=== PATIENT | male | born 1950 | race Caucasian/White ===

== ENCOUNTER 2021-09-15 12:06 | Emergency (ER) | payer MEDICARE, SELFPAY ==
[2021-09-15 12:28] VITALS: BP 106/68; PULSE 56; RESP 16; TEMP 36.3; O2SAT 100
--- NOTE | 2021-09-15 13:22 | ED.BACK ---
HPI - Back Pain/Injury General Chief Complaint: Back Pain/Injury Stated Complaint: lt leg pain Source: patient and RN notes reviewed Limitations: no limitations History of Present Illness HPI Narrative: The unwell patient, on meds w/ prior history of CVA, presents with back and leg pain. Patient and spouse states he has about 1/2-week history of left low back pain that mild, worse with motion, better at rest and radiates up and down from the left lower extremity as far as the upper knee. Pain is similar to prior episode a couple years ago assisted by newly using a cane; no frequency/urgency/dysuria/hematuria, bowel?bladder symptoms, numbness/weakness, abdominal pain [he has prior stable abdominal CT alsoo showing L4-5 arthritic changes]. Related Data Allergies Allergy/AdvReac Type Severity Reaction Status Date / Time ioversol Allergy Unknown Rash Verified 09/15/21 12:28 shellfish derived Allergy Unknown Hives Verified 09/15/21 12:28 Contrast Media Allergy Unknown HIVES- CT Uncoded 09/15/21 12:28 SCAN DYE Review of Systems Review of Systems: General/Constitutional: No weight loss,fever Eyes: N0: Redness,discharge Ears/Nose/Throat: No: Epistaxis,ear discharge Respiratory: Denies: Hemoptysis Gastrointestinal: No Vomiting, Bleeding-rectal Skin: No Lumps, eruption Neurologic: No Focal Weakness,Sz Hematologic: Denies: Petechiae/Purpura Psychiatric: No: Suicida ideationl All Other Systems: Reviewed and Negative PMFSH Family History Family History (Updated 06/14/14 @ 07:13 by DOCTOR UNKNOWN) Mother Family history of heart disease in male family member before age 55 Social History Social History Smoking status: Never smoker Alcohol intake: never Comments At time of signature, agree with nursing past medical, surgical, social and family history. There is no relevant family history pertinent to the presenting complaint Exam Narrative: General Appearance: Aged appearing, Well nourished EYE: PERRLA, Conjunctiva clear Ears: External ear normal Nose: Normal nose Mouth/Throat: Normal appearing, Normal lips Neck: Supple Respiratory: Airway patent Abdomen: Soft, no masses palpated Musculoskeletal: Normal strength (no footdrop, 53 : EH L-FHL, gastroc-AT, no saddle weakness) Spine/Back: Paraspinal muscle tender (with mild decreased range of motion; left posterior superior iliac crest) Skin: Normal color Neurological: Awake alert; Normal reflexes (symmetric, 2+ KJ, trace AJ) Psychiatric: Pleasantly demented normal mood Course Vital Signs Vital signs: Vital Signs Temperature 97.4 F L 09/15/21 12:28 Pulse Rate 56 L 09/15/21 12:28 Respiratory Rate 16 09/15/21 12:28 Blood Pressure 106/68 09/15/21 12:28 Pulse Oximetry 100 09/15/21 12:28 Temperature 97.4 F L 09/15/21 12:28 Pulse Rate 56 L 09/15/21 12:28 Respiratory Rate 16 09/15/21 12:28 Blood Pressure 106/68 09/15/21 12:28 Pulse Oximetry 100 09/15/21 12:28 Discharge Plan Discharge Clinical Impression: Lumbar radiculopathy, Lumbar arthropathy Patient Disposition: Home, Self-Care Condition: Stable Instructions: Sciatica (ED), Lower Back Exercises (ED) Prescriptions: New prednisone 20 mg tablet 60 mg PO DAILY Qty: 15 RF: 0 acetaminophen-codeine 120-12 mg/5 mL solution 7.5 ml PO DAILY PRN (Reason: pain) Qty: 118 RF: 0 Follow-up/Referrals: Pepe,MD Roel [Primary Care Provider] -
== END 2021-09-15 13:39 | disposition home or self-care (01) ==
PROVIDERS: Emergency Provider Emergency Medicine; PCP Internal Medicine
DX: M54.16 Radiculopathy, lumbar region (principal); M47.816 Spondylosis without myelopathy or radiculopathy, lumbar region; Z86.73 Personal history of transient ischemic attack (TIA), and cerebral infarction without residual deficits
CPT/HCPCS: 99213; G0463

== ENCOUNTER 2022-01-16 10:45 | Observation (INO) | payer MEDICARE, SELFPAY ==
[2022-01-16] VITALS (48 sets, daily range): BP systolic 90–132; BP diastolic 43–79; PULSE 53–72; RESP 9–22; TEMP 36.2–36.6; O2SAT 95–100; BMI 23.7
--- NOTE | ~2022-01-16 | XR_ITS ---
EXAMINATION: XR chest 1V portable EXAM DATE: 01/16/2022 11:01 INDICATION: STEMI . TECHNIQUE: Portable AP frontal chest x-ray was obtained. There is no prior study for comparison. FINDINGS: There is single lead pacemaker/AICD device seen with tip projecting over the expected locat ion of right ventricle. The lungs are clear. There are no pleural effusions. The cardiomediastinal silhouette is within normal limits. There is no pneumothorax suspected. Bones appear osteopenic. IMPRESSION: No acute cardiopulmonary findings. Reviewed, dictated and finalized at location B.
--- NOTE | 2022-01-16 10:48 | ED.GENADULT ---
HPI - General Adult General Chief complaint: Syncope Stated complaint: syncopal Time Seen by Provider: 01/16/22 10:45 Source: RN notes reviewed History of Present Illness HPI narrative: Patient presents emergency department via EMS for syncopal episode. The patient states [place] when he passed out sitting in the car. Per EMS the family did briefly do CPR on the patient patient regained consciousness approximately 30 seconds and EMS was called. The patient currently seen in the room notes mild shortness of breath he denies any fevers or chills, chest pain, abdominal pain nausea vomiting diarrhea or any other symptoms he states he does see cardiology down in [place] and has a history of a defibrillator Related Data Home Medications Medication Instructions Recorded Confirmed aspirin [Adult Low Dose Aspirin] 81 mg PO DAILY 09/15/21 09/15/21 bupropion HCl 150 mg PO DAILY 09/15/21 09/15/21 cholecalciferol (vitamin D3) 1,000 units PO DAILY 09/15/21 09/15/21 duloxetine 60 mg PO DAILY 09/15/21 09/15/21 empagliflozin [Jardiance] 25 mg PO DAILY 09/15/21 09/15/21 ezetimibe-simvastatin 40 tablet PO DAILY 09/15/21 09/15/21 lisinopril 10 mg PO DAILY 09/15/21 09/15/21 metoprolol tartrate 25 mg PO BID 09/15/21 09/15/21 multivitamin [Men's Multi-Vitamin] 1 tablet PO DAILY 09/15/21 09/15/21 nitroglycerin 0.4 mg SUBLINGUAL PRN PRN 09/15/21 09/15/21 Allergies Allergy/AdvReac Type Severity Reaction Status Date / Time ioversol Allergy Unknown Rash Verified 09/15/21 12:28 shellfish derived Allergy Unknown Hives Verified 09/15/21 12:28 Contrast Media Allergy Unknown HIVES- CT Uncoded 09/15/21 12:28 SCAN DYE Review of Systems Review of Systems: Gen.: Denies fevers or chills Eyes: Denies eye pain or visual change ENT: Denies congestion Respiratory: Ports shortness of breath CV: See HPI GI: Denies abdominal pain nausea, emesis or diarrhea Musculoskeletal: Denies back pain or muscle pain Neuro: Denies numbness, tingling, weakness or focal weakness Skin: Denies rash Except as documented, all other systems reviewed and negative [facility] Past Medical History Medical History Diabetes mellitus Hypertension Family History Family History Mother Family history of heart disease in male family member before age 55 Social History Social History Smoking status: Never smoker Alcohol intake: never Exam Narrative: APPEARANCE: Lying in bed diaphoretic EYES: EOMI HEENT: Normocephalic, atraumatic, OMM RESPIRATORY: No respiratory distress Clear to auscultation bilaterally with no rhonchi wheezing or rales. CARDIOVASCULAR: Regular rate and rhythm without murmurs rubs or gallops. ABDOMINAL: Soft, nontender, nondistended, no rebound or guarding MUSCULOSKELETAl: Moves all extremities. No clubbing, cyanosis or edema. NEURO: Awake and alert. Following commands, speech normal, no focal deficits SKIN:: Warm, dry. No rashes lesions or abrasions PSYCHIATRIC: Normal affect/mood, Course Course Emergency Course: Patient with initial EKG changes and code STEMI called. Dr. Umanzor came to the emergency department to evaluate the patient after evaluation and review of EKG at this time does not feel like this is an acute STEMI and code STEMI called off Call from [employer] patient had 1 shock from his AICD 1007 this morning for heart rate approximately 280 Discussed with patient family need for admission request transfer to [facility] with her followed by Dr. Yanez Patient accepted at [facility] by Dr. Olson. Discussed with transfer line there will be no beds available today Discussed with RUSSELL Vu for Dr. Cesar agrees with admission Vital Signs Vital signs: Vital Signs Temperature 97.6 F 01/16/22 10:42 Pulse Rate 72 01/16/22 10:42 Respira
[2022-01-16 10:50] LABS: Glucose Point of Care 133 mg/dl (65-105)
--- NOTE | 2022-01-16 10:52 | ECG_ITS ---
Measurements Intervals [place] [address] Rate: 66 P: -85 GA: 212 QRS: -32 QRSD: 181 T: 117 QT: 450 QTc: 473 Interpretive Statements POSSIBLE ECTOPIC ATRIAL RHYTHM WITH FIRST DEGREE AV BLOCK LEFT AXIS DEVIATION [QRS AXIS < -30] INTRAVENTRICULAR CONDUCTION DELAY [130+ ms QRS DURATION] ABNORMAL ECG NO PREVIOUS ECG AVAILABLE FOR COMPARISON Electronically Signed On 01-16-2022 17:17:09 CDT by Kendall Ma M.D.
[2022-01-16] MEDS: ASPIRIN 81 MG CHEWABLE TABLET 324 MG PO (10:55)
--- NOTE | 2022-01-16 10:55 | PC.NURSE ---
Stemi O/H = 1046 Tanner = 1046 Dr Umanzor = 1047 [facility] = 1048 ETA 20min
--- NOTE | 2022-01-16 11:07 | PC.NURSE ---
Barrel Repairer and senior label specialist staff at bedside speaking with family.
[2022-01-16 11:08] LABS: Basophils Absolute Auto 0.1 K/mm3 (0.0-0.1); Basophils Percent Auto 0.6 % (0.2-1.2); Eosinophils Absolute Auto 0.2 K/mm3 (0-0.3); Eosinophils Percent Auto 1.7 % (0-4.4); Hematocrit 45.8 % (42.0-52.0); Hemoglobin 15.3 g/dL (14.0-18.0); Immature Granulocyte Absolute 0.12 K/mm3 (0.00-0.031); Immature Granulocyte Percent A 0.9 % (0-0.5); Lymphocytes Absolute Auto 2.46 K/mm3 (0.9-3.2); Lymphocytes Percent Auto 19.4 % (18.3-44.2); Mean Corpuscular HGB Conc 33.4 g/dl (32-36); Mean Corpuscular Hemoglobin 32.3 pg (26-34); Mean Corpuscular Volume 96.6 fl (80-100); Mean Platelet Volume 10.5 fl (7.4-10.4); Monocytes Percent Auto 15.7 % (2.6-8.5); Neutrophils Absolute Auto 7.8 K/mm3 (1.3-6.7); Neutrophils Percent Auto 61.7 % (45.5-73.1); Platelet Count Result 205 k/mm3 (150-375); Red Blood Count 4.74 M/mm3 (4.6-6.20); Red Cell Distribution Width 13.3 % (11.5-14.5); White Blood Count 12.7 K/mm3 (4.5-10.0)
[2022-01-16 11:10] LABS: INR 1.1; Prothrombin Time 13.6 Seconds (11.1-14.7)
[2022-01-16 11:10] LABS: Alanine Aminotransferase 36 U/L (4-50); Albumin Level 4.1 g/dL (3.5-5.1); Alkaline Phosphatase 148 U/L (38-126); Anion Gap 8 mmol/L (8-16); Aspartate Amino Transferase 44 U/L (17-59); Blood Urea Nitrogen 22 mg/dL (9-20); Calcium 9.2 mg/dL (8.4-10.2); Carbon Dioxide 24 mmol/L (22-30); Chloride 104 mmol/L (98-107); Cholesterol 115 mg/dL (0-200); Estimated CRCL calculation 46 ml/min; Estimated Glomerular Filt Rate > 60; Glucose 148 mg/dL (65-110); HDL Direct 38 mg/dL; Lipase 123 U/L (23-300); Potassium 4.3 mmol/L (3.4-5.0); Sodium 136 mmol/L (137-145); Triglycerides 103 mg/dL (<150)
--- NOTE | 2022-01-16 11:10 | PC.NURSE ---
Pt's wants pt transferred to [facility]. Community Resource Consultant at bedside okay with transfer and speaking with Raya HARRINGTON. Pt denies any CP, reports dizziness has improved.
[2022-01-16 11:11] LABS: Partial Thromboplastin Time 24.1 SECONDS (22.3-36.8)
[2022-01-16 11:21] LABS: LDL Cholesterol Direct 54 mg/dL
[2022-01-16 11:25] LABS: Troponin I < 0.012 ng/mL (0.000-0.034)
--- NOTE | 2022-01-16 13:50 | PM.CNCAR ---
Assessment and Plan Additional Plan - ICD shock - history of CAD with 3 stents 1995 - ischemic cardiomyopathy last ejection fraction 35-40% 2018 - history of stroke. this 71-year-old patient who sustained an episode of syncope. Device interrogation shows that he was shocked. Denies chest pain. Troponins x1 negative. 1st EKG questionable for ST elevation in lead V2 however does not seem to be a STEMI. family requesting transfer to [place]. Meanwhile I recommend at this time starting patient on amiodarone until he gets transferred to [place]. Resume his home medications including beta-ming, aspirin History of Present Illness History of Present Illness Consult date/time: Date of fnuvikg10/01/22 13:50 Requesting physician: Xavier Dos Santos, DO Consult reason: Other ( syncope) Reason For Visit: syncopal Narrative: this is 71-year-old patient with past medical history of ischemic cardiomyopathy, defibrillator, history of myocardial infarction 1995 with 3 stents. also history of stroke and brain bleed. he follows up with Cardiology at [facility]. His stated that he had a defibrillator and the arm many issues with the defibrillator in terms of the leads. She describes that 1 of the leads was recalled. Recent interrogation was told that it will take about a couple months and then the pacemaker needs to be changed. He apparently was in the car and suddenly he had an episode of syncope and was not breathing and his son provided some brief CPR. Currently he is awake and oriented and denies any chest pain or shortness of breath. He was feeling totally fine earlier. Device interrogation apparently shows 1 shock. His on the bedside and she is very frustrated because she kept telling EMS to bring him to [facility] but they brought him here to [facility] she is very upset. She wants to take him directly to [facility] ([place] His EKG shows sinus rhythm with intraventricular conduction delay there is minimal ST elevation in lead V2. No old EKG in epic. His last echocardiogram was in 2018 showed ejection fraction 35-40%. Is hemodynamically stable Troponin x1 negative. Review of Systems Constitutional: Constitutional: Denies chills, Denies fever(s) and Denies poor appetite Eyes: Eyes: Denies eye discharge, Denies loss of vision, Denies eye pain and Denies photophobia ENT: Denies dizziness, Denies epistaxis, Denies nasal congestion and Denies sore throat Cardiovascular: Cardiovascular: Denies chest pain, Reports syncope, Denies pedal edema, Denies leg edema, Denies palpitations, Denies dyspnea, Denies dyspnea on exertion and Denies orthopnea Respiratory: Respiratory: Denies cough, Denies dyspnea, Denies dyspnea on exertion and Denies wheezing Gastrointestinal: Gastrointestinal: Denies abdominal pain, Denies diarrhea, Denies nausea and Denies vomiting Genitourinary: Genitourinary: Denies hematuria, Denies genital lesions and Denies dysuria Musculoskeletal: Musculoskeletal: Denies arthralgias, Denies joint swelling and Denies numbness Integumentary/Breasts: Skin/Breast: Denies pruritus and Denies rash Neurologic: Denies dizziness, Reports syncope, Denies loss of vision and Denies numbness Psychiatric: Psychiatric: Denies anxiety and Denies depression Endocrine: Endocrine: Denies cold intolerance, Denies heat intolerance and Denies palpitations Hematologic/Lymphatic: Hematologic/Lymphatic: Denies easy bleeding and Denies easy bruising Allergic/Immunologic: Allergic/Immunologic: Denies urticaria and Denies wheezing PMF Past Medical History Medical History Diabetes mellitus Hypertension Family History Family History Mother Family history of heart disease in male family member before age 55 Social History Social History Smoking status: N
[2022-01-16 14:05] LABS: SARS-CoV-2 RNA PCR Negative
[2022-01-16 14:46] LABS: Troponin I 0.018 ng/mL (0.000-0.034)
[2022-01-16] MEDS: AMIODARONE 360 MG/D5W 200 ML 360 MG/200 ML BAG 33.33 MG IV CONT (18:13)
[2022-01-16] MEDS: AMIODARONE 150 MG/D5W 100 ML 150 MG/100 ML BAG 600 MG IV CONT (18:14)
[2022-01-16] MEDS: ENOXAPARIN 40 MG/0.4 ML SYRINGE SUB-Q (18:26)
--- NOTE | 2022-01-16 18:38 | ADMGEN ---
This patient, Jacinto Navarrete, was admitted to IMU Room 213-01. Patient/family oriented to hospital policies and general routines including ID bracelet, bed and alarms, visiting hours, pain management, procedures, bathroom and other care routines, personal items, smoking policy, room service/diet, and visiting hours. Information on how to activate the Rapid Response Team has been discussed. Patient/Family are encouraged to report perceived risks to care and to ask questions if they do not understand what they are told or what they should do.
[2022-01-16 18:44] LABS: Troponin I 0.022 ng/mL (0.000-0.034)
--- NOTE | 2022-01-16 20:12 | PM.IMHP ---
H&P: HPI History of Present Illness Date/Time: Patient was placed observation status for expected length of stay less than 23 hours for management, will plan to re-evaluate tomorrow for improvement. 01/16/22 20:12 Chief Complaint: ICD discharge Narrative: Mr. Navarrete is a 71-year-old gentleman who presents to the emergency room via EMS for a syncopal episode. Patient is unable to give me any type of history of what occurred, because he does not recall the events. Per patient's and son patient was going [place] the horse track today with his son when they turned the corner away from his house and the patient went unresponsive. Patient's son states he tried to arouse his father multiple times and he was unable to do arouse him. Patient's son states that he then got his father added car and EMS was called and the son started CPR. Patient states that after he had given 5 chest compressions and around of breaths the patient cast and started to ?come around?. It is patient has a known history of CAD status post stent placement and ischemic cardiomyopathy status post ICD placement. Patient spouse states he typically follows up at [place] with Cardiology for all of his needs. Patient denies any chest pain, shortness a breast, lightheadedness, dizziness, fever, or chills prior to or after the event. Patient states he did lose consciousness and does not recall any of these events. Upon evaluation in emergency room patient underwent interrogation of his defibrillator and it appears that patient was in VFib and he was shocked appropriately by his defibrillator. Review of Systems Review of Systems: A 12 point review of systems was completed patient all pertinent positive and negative per HPI the remainder are unremarkable. I am unsure of how reliable review of systems secondary to the fact the patient cannot recall the events of the day. [facility] Past Medical History Medical History (Updated 01/16/22 @ 20:19 by Mirella Sanchez APRN) Coronary artery disease CVA (cerebral vascular accident) Depression Diabetes mellitus Dyslipidemia Hypertension Ischemic cardiomyopathy Surgical History Surgical History (Updated 01/16/22 @ 20:19 by Mirella Sanchez APRN) Presence of single chamber implantable cardioverter-defibrillator (ICD) Stented coronary artery Family History Family History Mother Family history of heart disease in male family member before age 55 Social History Social History Smoking status: Never smoker Alcohol intake: never Substance use: never Spiritual care concerns: No Meds Home Medications and Allergies Home Medications Medication Instructions Recorded Confirmed Type bupropion HCl 150 mg PO DAILY 09/15/21 01/16/22 History cholecalciferol (vitamin D3) 1,000 units PO DAILY 09/15/21 01/16/22 History duloxetine 60 mg PO DAILY 09/15/21 01/16/22 History empagliflozin [Jardiance] 25 mg PO DAILY 09/15/21 01/16/22 History ezetimibe-simvastatin 40 tablet PO DAILY 09/15/21 01/16/22 History lisinopril 10 mg PO DAILY 09/15/21 01/16/22 History metoprolol tartrate 25 mg PO BID 09/15/21 01/16/22 History multivitamin [Men's Multi-Vitamin] 1 tablet PO DAILY 09/15/21 01/16/22 History nitroglycerin 0.4 mg SUBLINGUAL PRN PRN 09/15/21 01/16/22 History aspirin [Adult Aspirin] 81 mg PO DAILY 01/16/22 01/16/22 History Allergies Allergy/AdvReac Type Severity Reaction Status Date / Time ioversol Allergy Unknown Rash Verified 09/15/21 12:28 shellfish derived Allergy Unknown Hives Verified 09/15/21 12:28 Contrast Media Allergy Unknown HIVES- CT Uncoded 09/15/21 12:28 SCAN DYE Vital Signs Vital Signs - 24 hr 01/16/22 10:42 01/16/22 10:56 01/16/22 11:00 Temperature 36.4 C Pulse Rate 72 61 60 Respiratory Rate 17 17 Blood Pressure 122/79 Pulse Oximetry 100 100 01/16/22 11:07 01/16/22 11:11 01/16/22
[2022-01-16 20:47] LABS: Glucose Point of Care 150 mg/dl (65-105)
[2022-01-16] MEDS: METOPROLOL TARTRATE 25 MG TABLET PO (20:53)
[2022-01-17] VITALS (9 sets, daily range): BP systolic 98–119; BP diastolic 62–74; PULSE 52–56; RESP 12–20; TEMP 36.4–36.6; O2SAT 90–99
[2022-01-17] MEDS: AMIODARONE 360 MG/D5W 200 ML 360 MG/200 ML BAG 16.67 MG IV CONT ×2 (00:05→11:51)
[2022-01-17 01:09] LABS: Troponin I 0.023 ng/mL (0.000-0.034)
[2022-01-17 05:27] LABS: Basophils Absolute Auto 0.1 K/mm3 (0.0-0.1); Basophils Percent Auto 0.8 % (0.2-1.2); Eosinophils Absolute Auto 0.2 K/mm3 (0-0.3); Eosinophils Percent Auto 2.3 % (0-4.4); Hemoglobin 14.9 g/dL (14.0-18.0); Immature Granulocyte Absolute 0.09 K/mm3 (0.00-0.031); Immature Granulocyte Percent A 0.9 % (0-0.5); Lymphocytes Absolute Auto 2.42 K/mm3 (0.9-3.2); Lymphocytes Percent Auto 24.2 % (18.3-44.2); Mean Corpuscular HGB Conc 33.9 g/dl (32-36); Mean Corpuscular Hemoglobin 32.3 pg (26-34); Mean Corpuscular Volume 95.4 fl (80-100); Mean Platelet Volume 10.9 fl (7.4-10.4); Monocytes Absolute Auto 1.5 K/mm3 (0.1-0.6); Monocytes Percent Auto 14.8 % (2.6-8.5); Neutrophils Absolute Auto 5.7 K/mm3 (1.3-6.7); Platelet Count Result 178 k/mm3 (150-375); Red Blood Count 4.61 M/mm3 (4.6-6.20); Red Cell Distribution Width 13.5 % (11.5-14.5)
[2022-01-17 05:33] LABS: Alanine Aminotransferase 33 U/L (4-50); Albumin Level 3.8 g/dL (3.5-5.1); Alkaline Phosphatase 131 U/L (38-126); Anion Gap 5 mmol/L (8-16); Aspartate Amino Transferase 39 U/L (17-59); Bilirubin,Total 0.4 mg/dL (0.2-1.3); Blood Urea Nitrogen 21 mg/dL (9-20); Calcium 8.4 mg/dL (8.4-10.2); Carbon Dioxide 26 mmol/L (22-30); Chloride 105 mmol/L (98-107); Estimated CRCL calculation 56 ml/min; Estimated Glomerular Filt Rate > 60; Glucose 104 mg/dL (65-110); Magnesium 2.2 mg/dL (1.6-2.3); Potassium 4.1 mmol/L (3.4-5.0); Sodium 136 mmol/L (137-145)
[2022-01-17 07:17] LABS: Glucose Point of Care 108 mg/dl (65-105)
[2022-01-17] MEDS: lisinopriL 10 MG TABLET PO (08:18)
[2022-01-17] MEDS: DULoxetine HCL 60 MG CAPSULE.DR PO (08:18)
[2022-01-17] MEDS: ASPIRIN 81 MG CHEWABLE TABLET PO (08:18)
[2022-01-17] MEDS: MULTIVITAMINS THERAPEUTIC TAB (*BKC) 1 TABLET PO (08:18)
[2022-01-17] MEDS: CHOLECALCIFEROL 1,000 UNITS TABLET 1000 UNITS PO (08:18)
[2022-01-17] MEDS: buPROPion HCL XL (24 HR) 150 MG TABCR PO (08:18)
[2022-01-17] MEDS: METOPROLOL TARTRATE 25 MG TABLET PO (08:18)
[2022-01-17] MEDS: SIMVASTATIN 20 MG TABLET 40 MG PO (08:18)
[2022-01-17] MEDS: ENOXAPARIN 40 MG/0.4 ML SYRINGE SUB-Q (08:19)
[2022-01-17] MEDS: EZETIMIBE 10 MG TABLET PO (08:19)
[2022-01-17] MEDS: EMPAGLIFLOZIN 25 MG TABLET PO (08:19)
[2022-01-17 08:27] LABS: Glucose Point of Care 100 mg/dl (65-105)
[2022-01-17 11:37] LABS: Glucose Point of Care 186 mg/dl (65-105)
--- NOTE | 2022-01-17 15:01 | PM.PNCARD ---
Progress Note: A&P Assessment and Plan (1) AICD discharge: Code(s): Z45.02 - Encounter for adjustment and management of automatic implantable cardiac defibrillator Status: Acute Assessment and Plan: Appropriate ICD discharge x1 35 joule termination of polymorphic ventricular tachycardia 286 beats per minute 01/16/2022 with associated loss of consciousness. No other documented recurrent episodes of nonsustained or sustained ventricular tachycardia available per review. Potassium, magnesium renal function normal range. Patient hemodynamically stable, not in decompensated heart failure. No anginal symptoms. Serial troponins negative, patient ruled out for acute myocardial infarction. No recurrent ventricular arrhythmia overnight on amiodarone. While patient is accepted and awaiting transfer to [place] he remains unclear with able do for him on an inpatient basis at this time. His device is not yet meet criteria for elective replacement although his battery voltage is at the minimum chest prior to JULIO CÉSAR status. Furthermore, benefit ongoing amiodarone also remains questionable. We were unable to obtain an echocardiogram this weekend so cannot further clarify his EF. We discussed at length the risk for recurrent VT/VF with reportedly this is his only episode of over many years. Given the absence of reversible/treatable contributions at this time he remains at risk given his history of cardiomyopathy of which he is well aware. I recommend up titration of metoprolol tartrate to 50 mg twice daily. Ideally, would consider transitioning to Toprol XL but I will defer this to his primary tarring machine operator at [place]. We discussed the prospect of discharge home and close follow-up with his tarring machine operator on an outpatient basis as patient is stable and without recurrent episodes. We discussed the risk off amiodarone of recurrent ventricular arrhythmias. However, as is the only recent documented episode I do not feel that committing him to amiodarone at this time considering relative risks versus benefits is warranted. As such I will discontinue amiodarone increase his beta-ming therapy. I will check a TSH prior to discharge otherwise feeling he can be discharged home with close follow-up with his tarring machine operator. Obviously, should he have recurrent ICD discharge he should present to [place] ideally further management. Patient and his are in agreement with plan of care all questions answered to their satisfaction. As previously stated they are comfortable with discharge home without transfer to [place] given the lack of recurrence and overall stability at this time. (2) Ventricular tachycardia: Code(s): I47.2 - Ventricular tachycardia Status: Acute Assessment and Plan: As above. (3) Ischemic cardiomyopathy: Code(s): I25.5 - Ischemic cardiomyopathy Status: Acute Assessment and Plan: Compensated, stable asymptomatic new Heart Association class 1-2 symptoms. Last documented EF 2018 by echocardiogram 33%. Echocardiogram unable to be obtained unfortunately over the weekend. Subjective Date/time seen: Date of service: 01/17/22 15:02 Follow-up for appropriate ICD discharge x1 for ventricular tachycardia and VF zone Patient has no complaints. at bedside. She relates a very detailed historical account of his cardiac history. Patient denies shortness of breath, palpitations, chest pain, dizziness lightheadedness. He feels at baseline. He is awaiting transfer to [place] but apparently there is no bed availability. Review of Systems Constitutional: Constitutional: Denies chills, Denies fever(s) and Denies poor appetite Eyes: Eyes: Denies eye discharge, Denies loss of vision, Denies eye pain and Denies photophobia ENT: Denies dizziness, Denies epistaxis, Denies nasal congestion and Denies sore throat Cardiovascular: Cardiovascular: Denies chest pain, Reports syncope, Denies pedal edema, Denies leg edema,
[2022-01-17 16:06] LABS: Glucose Point of Care 184 mg/dl (65-105)
--- NOTE | 2022-01-17 16:30 | PM.DS ---
DS: Admitting Diagnosis Discharge Date 01/17/2022 Admitting Diagnosis AICD discharge DS: Discharge Diagnosis Discharge Diagnosis (1) Syncope: Code(s): R55 - Syncope and collapse Status: Acute Assessment and Plan: Most likely secondary to ventricular fibrillation and ICD shock. Patient does not recall the syncopal episode that occurred today. After interrogation of defibrillator does appear that defibrillator shocked patient appropriately. Patient seen by Cardiology. As this is his first and only episode and he is hemodynamically stable, amiodarone will be stopped. Metoprolol will be increased and he will have close follow up with his [employer]. TSH 2.6. -Appreciate recommendations from Cardiology -Increase metoprolol to 50 mg BID (2) AICD discharge: Code(s): Z45.02 - Encounter for adjustment and management of automatic implantable cardiac defibrillator Status: Acute Assessment and Plan: Patient was in ventricular fibrillation and did receive ICD shock which was successful. Cardiology recommends increase of metoprolol 50 mg BID and discharge to home with close follow up with his [employer]. (3) Diabetes mellitus: Code(s): E11.9 - Type 2 diabetes mellitus without complications Status: Acute Assessment and Plan: Controlled (4) Hypertension: Code(s): I10 - Essential (primary) hypertension Status: Acute Assessment and Plan: Continue home lisinopril. DS: Summary Hospital Course Hospital Course: 73M with a past medical history of CT, CAD, stroke, ischemic cardiomyopathy w/ AICD who presented to the ED for syncope. Patient was with and son when he became unresponsive. CPR was performed by son. It was determined the patient was in ventricular fibrillation. Cardiology was consulted and recommended starting amiodarone ggt. Per patient and family request, [facility] was contacted and accepted patient for transfer to be cared for by his primary airline stewardess. Patient was admitted and waited for a bed. Troponin was negative, TSH was 2.6 and patient was hemodynamically stable at his baseline. Metoprolol was increased to 50 mg BID with plan for close follow up with primary [employer]. Discussed with family who was in agreement with the plan. Patient discharged to home. Time Spent with Patient Time attestation: Total time spent providing and/or coordinating discharge services: Exam Narrative: GENERAL: NAD, cooperative HEENT: Normocephalic, atraumatic, anicteric NECK: Supple CV: Regular rate, no murmurs, rubs or gallops RESP: CTAB, Normal work of breathing. EXTREMITIES: Warm and well perfused, no clubbing, cyanosis, or edema. SKIN: warm, dry and intact. NEURO: CN 2-12 grossly intact DS: Data Data Completed and Pending Labs on day of discharge: Labs from last 24 hours 01/17/22 01/17/22 01/17/22 15:57 11:32 08:14 WBC RBC Hgb Hct MCV MCH MCHC RDW Plt Count MPV Immature Gran % (Auto) Neut % (Auto) Lymph % (Auto) Levy % (Auto) Eos % (Auto) Baso % (Auto) Lymph # (Auto) Levy # (Auto) Eos # (Auto) Baso # (Auto) Abs Immat Gran (auto) Absolute Neuts (auto) Absolute Nucleated RBC Nucleated RBC % Sodium Potassium Chloride Carbon Dioxide Anion Gap BUN Creatinine Estim Creat Clear Calc Estimated GFR Glucose POC Capillary Glucose 184 H 186 H 100 Calcium Magnesium Total Bilirubin AST ALT Alkaline Phosphatase Troponin I Total Protein Albumin TSH 01/17/22 01/17/22 01/17/22 07:13 04:51 04:51 WBC 10.0 RBC 4.61 Hgb 14.9 Hct 44.0 MCV 95.4 MCH 32.3 MCHC 33.9 RDW 13.5 Plt Count 178 MPV 10.9 H Immature Gran % (Auto) 0.9 H Neut % (Auto) 57.0 Lymph % (Auto) 24.2 Levy % (Auto) 14.8 H Eos % (Auto) 2.3 Baso % (Auto) 0.8
== END 2022-01-17 18:00 | disposition home or self-care (01) ==
LOC: ANHED 15:33 → ANHIMU 01-17 16:30
PROVIDERS: Internal Medicine Cardiovascular Disease; Nurse Practitioner Adult Health; Admitting Provider Family Medicine; Emergency Provider Emergency Medicine; PCP Internal Medicine; Visit Provider Family Medicine
DX: R55 Syncope and collapse (principal); I47.2 Ventricular tachycardia; I25.10 Atherosclerotic heart disease of native coronary artery without angina pectoris; I10 Essential (primary) hypertension; I25.5 Ischemic cardiomyopathy; E11.9 Type 2 diabetes mellitus without complications; E78.5 Hyperlipidemia, unspecified; F32.A Depression, unspecified; Z95.810 Presence of automatic (implantable) cardiac defibrillator; Z20.822 Contact with and (suspected) exposure to COVID-19; Z95.5 Presence of coronary angioplasty implant and graft; Z86.73 Personal history of transient ischemic attack (TIA), and cerebral infarction without residual deficits; Z45.02 Encounter for adjustment and management of automatic implantable cardiac defibrillator; Z79.84 Long term (current) use of oral hypoglycemic drugs
CPT/HCPCS: 36415; 71045; 80053; 80061; 82948; 83690; 83735; 84443; 84484; 85025; 85610; 85730; 86850; 86900; 86901; 93005; 96365; 96366; 96372; 96376; 99285; A9270; C9803; G0378; J0282; J1650; U0003; U0005

== ENCOUNTER 2023-01-27 14:20 | Emergency (ER) | payer MEDICARE, SELFPAY ==
--- NOTE | ~2023-01-27 | XR_ITS ---
EXAMINATION: XR chest 1V Exam Date/Time: 01/27/2023 19:25 CDT HISTORY: confusion. no chest complaints. hx CVA, CAD Comparison: 01/16/2022. RESULT: Lines, tubes, and devices: Left chest pacer/AICD. Lungs and pleura: Mild mid and lower lung reticular opacities. Minimal bilateral costophrenic angle blunting. Cardiomediastinal silhouette: Stable. Other: No acute osseous or upper abdominal finding. IMPRESSION: Pulmonary opacities may represent mild interstitial edema in the appropriate clinical context. Possib le very small bilateral pleural effusions.. Reviewed, dictated and finalized at location K. IMPRESSION: Pulmonary opacities may represent mild interstitial edema in the appropriate cl inical context. Possible very small bilateral pleural effusions..
--- NOTE | ~2023-01-27 | CT_ITS ---
EXAMINATION: CT brain wo con DATE: 01/27/2023 19:20 INDICATION: confusion . TECHNIQUE: Computed tomography (CT) of the head was performed without intravenous contrast. The mA wa s adjusted according to patient size. Iterative reconstruction technique was employed. The dose-lengt h product was 605.33 mGy-cm. COMPARISON: 11/22/2017. FINDINGS: No acute intracranial hemorrhage or extra-axial fluid collection. No hydrocephalus, mass, or herniation. No acute ischemic infarct. Unremarkable dural venous sinus attenuation. No acute osseous abnormality. Right maxillary air-fluid level, trace left mastoid fluid, the remaining aerated spaces are clear. Mild atrophy and chronic white matter change. Large area of encephalomalacia in the right parieto-occ ipital region. Atherosclerotic intracranial calcification. Bilateral lens replacements. IMPRESSION: No acute intracranial process. Acute left maxillary sinusitis. Reviewed, dictated and finalized at location K.
[2023-01-27 14:23] VITALS: PULSE 54; RESP 16; TEMP 36.9; O2SAT 96
[2023-01-27 15:58] LABS: Basophils Absolute Auto 0.1 K/mm3 (0.0-0.1); Basophils Percent Auto 0.7 % (0.2-1.2); Eosinophils Absolute Auto 0.3 K/mm3 (0-0.3); Eosinophils Percent Auto 2.8 % (0-4.4); Hematocrit 46.5 % (42.0-52.0); Hemoglobin 15.1 g/dL (14.0-18.0); Immature Granulocyte Absolute 0.06 K/mm3 (0.00-0.031); Immature Granulocyte Percent A 0.7 % (0-0.5); Lymphocytes Absolute Auto 1.65 K/mm3 (0.9-3.2); Lymphocytes Percent Auto 18.7 % (18.3-44.2); Mean Corpuscular HGB Conc 32.5 g/dl (32-36); Mean Corpuscular Hemoglobin 30.3 pg (26-34); Mean Corpuscular Volume 93.4 fl (80-100); Mean Platelet Volume 10.8 fl (7.4-10.4); Monocytes Absolute Auto 1.4 K/mm3 (0.1-0.6); Monocytes Percent Auto 15.7 % (2.6-8.5); Neutrophils Absolute Auto 5.4 K/mm3 (1.3-6.7); Neutrophils Percent Auto 61.4 % (45.5-73.1); Platelet Count Result 171 k/mm3 (150-375); Red Blood Count 4.98 M/mm3 (4.6-6.20); Red Cell Distribution Width 15.1 % (11.5-14.5); White Blood Count 8.8 K/mm3 (4.5-10.0)
[2023-01-27 16:11] LABS: Alanine Aminotransferase 58 U/L (6-50); Albumin Level 4.1 g/dL (3.5-5.1); Alkaline Phosphatase 136 U/L (38-126); Anion Gap 6 mmol/L (8-16); Aspartate Amino Transferase 59 U/L (17-59); Bilirubin,Total 1.2 mg/dL (0.2-1.3); Blood Urea Nitrogen 28 mg/dL (9-20); Carbon Dioxide 28 mmol/L (22-30); Chloride 103 mmol/L (98-107); Estimated CRCL calculation 45 ml/min; Estimated Glomerular Filt Rate > 60; Glucose 100 mg/dL (65-110); Potassium 4.7 mmol/L (3.4-5.0); Sodium 137 mmol/L (137-145)
[2023-01-27 18:44] LABS: Glucose Point of Care 91 mg/dl (65-105)
--- NOTE | 2023-01-27 19:08 | ECG_ITS ---
Measurements Intervals [place] Rate: 59 P: DC: 0 QRS: -48 QRSD: 209 T: 132 QT: 514 QTc: 512 Interpretive Statements ELECTRONIC VENTRICULAR PACED RHYTHM INTERMITTENT ELECTRONIC ATRIAL PACED RHYTHM NO FURTHER INTERPRETATION POSSIBLE COMPARED TO ECG 01/16/2022 10:45:31 ELECTRONIC VENTRICULAR PACED RHYTHM NOW PRESENT Electronically Signed On 01-29-2023 16:08:47 CDT by Kendall Ma M.D.
--- NOTE | 2023-01-27 19:26 | ED.GENADULT ---
HPI - General Adult General Chief complaint: Unspecified Stated complaint: dizziness Time Seen by Provider: 01/27/23 18:46 Source: family and RN notes reviewed Mode of arrival: ambulatory History of Present Illness HPI narrative: This is a 72 year old male with history of CAD, stents, ventricular thrombus, chronic anticoagulation, AICD, syncope who presents with family concerned for confusion. His states his last episode of syncope was in November, and [facility]. Patient has been placed on lasix PRN. She states at that time patient son performed CPR on patient and his AICD fired afterwards. They think patient has been confused since this episode. They reports intermittent balance issues and intermittent difficulty following commands. She states today patient appeared to be hallucination. He was picking his pants as if objects were present. She states his last fall was 3 weeks ago. She monitors his bowel movements, weight , and BP daily. She reports patient is eating with normal appetite. She states patient has lost 3 pounds in 2 days. He uses cane to walk around. Patient does not have any complaints. He was found to have ventricular thrombus 1 year ago and he has been on eliquis since. [facility]. Related Data Home Medications Medication Instructions Recorded Confirmed bupropion HCl 150 mg 24 hr tablet, 150 mg PO DAILY 09/15/21 01/16/22 extended release cholecalciferol (vitamin D3) 1,000 units PO DAILY 09/15/21 01/16/22 duloxetine 60 mg capsule,delayed 60 mg PO DAILY 09/15/21 01/16/22 release empagliflozin 25 mg tablet 25 mg PO DAILY 09/15/21 01/16/22 (Jardiance) ezetimibe 10 mg-simvastatin 40 mg 40 tablet PO DAILY 09/15/21 01/16/22 tablet lisinopril 10 mg tablet 10 mg PO DAILY 09/15/21 01/16/22 multivitamin 1 tablet PO DAILY 09/15/21 01/16/22 nitroglycerin 0.4 mg sublingual 0.4 mg sublingual PRN PRN Chest 09/15/21 01/16/22 tablet Pain aspirin 81 mg chewable tablet 81 mg PO DAILY 01/16/22 01/16/22 Allergies Allergy/AdvReac Type Severity Reaction Status Date / Time ioversol Allergy Unknown Rash Verified 09/15/21 12:28 shellfish derived Allergy Unknown Hives Verified 09/15/21 12:28 Contrast Media Allergy Unknown HIVES- CT Uncoded 09/15/21 12:28 SCAN DYE Review of Systems Review of Systems: ROS unobtainable: Yes other (dementia) PMFSH Past Medical History Medical History (Updated 01/27/23 @ 20:33 by Krupa Taylor MD) Coronary artery disease CVA (cerebral vascular accident) Depression Diabetes mellitus Dyslipidemia Hypertension Ischemic cardiomyopathy Surgical History Surgical History (Updated 01/16/22 @ 20:19 by Mirella Sanchez APRN) Presence of single chamber implantable cardioverter-defibrillator (ICD) Stented coronary artery Family History Family History Mother Family history of heart disease in male family member before age 55 Social History Social History Smoking status: Never smoker Alcohol intake: never Substance use: never Spiritual care concerns: No Exam Narrative: GENERAL: Well-appearing, well-nourished, and in no acute distress. HEAD: Normocephalic, atraumatic EYES: PERRLA and EOMI, conjunctiva clear without discharge THROAT:Mucous membranes moist, Oropharynx normal without erythema, exudate, peritonsillar swelling or fluctuance NECK: Supple, without lymphadenopathy or mass RESPIRATORY: No respiratory distress, Airway patent, Respirations non-labored, Clear to auscultation without rales, rhonchi or wheeze HEART: Regular rate and rhythm. No murmur heard. Normal peripheral pulses. ABDOMEN: Soft, nontender, nondistended, normal active bowel sounds. No masses. No rebound or guarding, No organomegaly. EXTREMITIES: No edema, normal strength with full range of motion. SKIN: Warm, dry, n
[2023-01-27 19:33] LABS: Magnesium 2.4 mg/dL (1.6-2.3)
[2023-01-27 19:46] LABS: Appearance Urine Clear (Clear); Bilirubin Urine Negative (Negative); Blood Urine Negative (Negative); Color Urine Yellow (Yellow); Glucose Urine UA 3+ mg/dL (Negative); Ketones Urine 1+ mg/dL (Negative); Leukocyte Esterase Ur Negative LEU/UL (Negative); Nitrate Urine Negative (Negative); Protein Urine Negative (Negative); Specific Grav Ur 1.028 (1.001-1.035); pH Urine 6.5 (5.0-9.0)
[2023-01-27 19:51] LABS: Add Urine Microscopic? NO
[2023-01-27 19:57] LABS: INR 1.4; Prothrombin Time 16.9 Seconds (11.1-14.7)
[2023-01-27 19:58] LABS: Partial Thromboplastin Time 27.6 SECONDS (22.3-36.8)
[2023-01-27 20:21] LABS: Influenza A QL RT-PCR Negative (Negative); Influenza B QL RT-PCR Negative (Negative); SARS-CoV-2 RNA PCR Negative
[2023-01-27 21:07] VITALS: BP 136/74; PULSE 75; O2SAT 99
== END 2023-01-27 21:09 | disposition home or self-care (01) ==
PROVIDERS: Emergency Medicine; Emergency Provider General Practice; PCP Internal Medicine
DX: R41.0 Disorientation, unspecified (principal); Z20.822 Contact with and (suspected) exposure to COVID-19; I25.10 Atherosclerotic heart disease of native coronary artery without angina pectoris; I25.5 Ischemic cardiomyopathy; I10 Essential (primary) hypertension; E11.9 Type 2 diabetes mellitus without complications; E78.5 Hyperlipidemia, unspecified; Z86.73 Personal history of transient ischemic attack (TIA), and cerebral infarction without residual deficits; Z86.718 Personal history of other venous thrombosis and embolism; Z95.810 Presence of automatic (implantable) cardiac defibrillator; Z95.5 Presence of coronary angioplasty implant and graft; Z79.84 Long term (current) use of oral hypoglycemic drugs; Z79.82 Long term (current) use of aspirin; Z79.01 Long term (current) use of anticoagulants
CPT/HCPCS: 36415; 70450; 71045; 80053; 81003; 82948; 83735; 85025; 85610; 85730; 87636; 93005; 99284